=== PATIENT | female | born 1980 | race Two or more races ===

== ENCOUNTER 2019-07-24 04:13 | Inpatient (IN) | payer MEDICAID, OTHER ==
[2019-07-24] VITALS (15 sets, daily range): BP systolic 95–122; BP diastolic 37–91
[~2019-07-24] VITALS: Ht 152.4 cm; Wt 71.0 kg
[2019-07-24] MEDS ORDERED: IOHEXOL 350 MG/ML 100ML IJ ONE (04:30)
[2019-07-24 05:31] LABS: Basophils # (auto) 0.1 10 ^3/uL (0-0.2); Basophils % (auto) 1.1 % (0.0-2.0); Eosinophils # (auto) 0.1 10 ^3/uL (0-0.8); Eosinophils % (auto) 0.8 % (0.0-7.0); Hematocrit 12.4 % (36.0-46.0); Lymphocytes # (auto) 2.7 10 ^3/uL (0.4-5.4); Lymphocytes % (auto) 23.2 % (10.0-50.0); Mean Corpuscular Hemoglobin 17.8 pg (28.0-32.0); Mean Corpuscular Hgb Conc. 29.6 g/dL (32.0-36.0); Mean Corpuscular Volume 60.2 fL (80.0-100.0); Monocytes # (auto) 0.9 10 ^3/uL (0-1.3); Monocytes % (auto) 7.6 % (0.0-12.0); Neutrophils # (auto) 7.7 10 ^3/uL (1.6-8.6); Neutrophils % (auto) 67.3 % (37.0-80.0); Nucleated Red Blood Cells % 0.5 %; Platelet Count (auto) 274 10^3/uL (140-450); Red Blood Cells 2.07 10^6/uL (4.0-5.20); Red Cell Distribution Width 21.6 % (11.8-14.3); White Blood Cell 11.5 10^3/uL (4.4-10.8)
[2019-07-24 05:34] LABS: Hemoglobin 3.7 g/dL (12.2-16.2)
[2019-07-24 05:52] LABS: Urine Bacteria NONE SEEN /hpf (None Seen); Urine Blood 3+ /uL (Negative); Urine Specific Gravity 1.012 (1.001-1.035); Urine WBC 56 /hpf (0 - 5)
[2019-07-24 06:10] LABS: Chloride 109 mmol/L (98-107); Potassium 3.3 mmol/L (3.5-5.1); Sodium 140 mmol/L (136-145)
[2019-07-24 06:44] LABS: INR 1.23 (0.9-1.15); Partial Thromboplastin Time 28.6 sec (23.64-32.05)
[2019-07-24] MEDS ORDERED: cefTRIAXone 1GM/50ML D5W 50 ML IV ONE ×2 (07:00→14:30)
[2019-07-24 07:30] LABS: Alanine Aminotransferase 26 U/L (13-56); Anion Gap 11 (5-15); Aspartate Aminotransferase 19 U/L (15-37); BUN/Creatinine Ratio 10.8; Bilirubin, Total 0.3 mg/dL (0.2-1.0); Blood Urea Nitrogen 8 mg/dL (7-18); Carbon Dioxide 20 mmol/L (21-32); GFR African American 112 mL/min; GFR Non-African American 93 mL/min; Glucose 146 mg/dL (74-106); Total Protein 6.7 g/dL (6.4-8.2)
[2019-07-24 07:31] LABS: Alkaline Phosphatase 74 U/L (45-117); Calcium 7.7 mg/dL (8.5-10.1); Magnesium 2.3 mg/dL (1.6-2.6)
[2019-07-24] MEDS ORDERED: MORPHINE SULF INJ 2 MG/ML SYRINGE 1ML IV PRN ×2 (10:00)
[2019-07-24] MEDS ORDERED: HYDROcodone-ACET 5/325MG TAB PO PRN (10:00)
[2019-07-24] MEDS ORDERED: ONDANSETRON HCL 4 MG/2 ML VIAL IV PRN (10:00)
[2019-07-24] MEDS ORDERED: NITROGLYCERIN 0.4 MG SL TAB SL PRN (10:00)
[2019-07-24] MEDS ORDERED: ACETAMINOPHEN 500 MG TAB PO PRN (10:00)
[2019-07-24] MEDS ORDERED: IOHEXOL 300 MG/ML 100ML BOTTLE IJ ONE ×2 (10:03→13:54)
[2019-07-24] MEDS: levoFLOXacin 500 MG TAB PO SCH (10:53)
[2019-07-24] MEDS: PANTOPRAZOLE 40 MG TAB PO SCH (10:54)
[2019-07-24 13:33] LABS: Basophils # (auto) 0.1 10 ^3/uL (0-0.2); Monocytes # (auto) 0.8 10 ^3/uL (0-1.3); Neutrophils # (auto) 7.3 10 ^3/uL (1.6-8.6); Nucleated Red Blood Cells % 0.3 %
[2019-07-24 13:35] LABS: Basophils % (auto) 0.9 % (0.0-2.0); Eosinophils # (auto) 0.1 10 ^3/uL (0-0.8); Eosinophils % (auto) 0.5 % (0.0-7.0); Hematocrit 21.6 % (36.0-46.0); Lymphocytes % (auto) 19.4 % (10.0-50.0); Mean Corpuscular Hemoglobin 22.5 pg (28.0-32.0); Mean Corpuscular Hgb Conc. 32.2 g/dL (32.0-36.0); Mean Corpuscular Volume 69.7 fL (80.0-100.0); Monocytes % (auto) 7.8 % (0.0-12.0); Neutrophils % (auto) 71.4 % (37.0-80.0); Platelet Count (auto) 257 10^3/uL (140-450); White Blood Cell 10.2 10^3/uL (4.4-10.8)
[2019-07-24 13:37] LABS: Red Cell Distribution Width 29.7 % (11.8-14.3)
--- NOTE | 2019-07-24 16:15 | NUR ---
Telemetry admit from ER DARRIUS HUGOMELIA admitted to Telemetry unit after SBAR received. Patient oriented to Anne Espana, primary RN, unit, room, bed, and unit policies regarding patient care and current no visitation policy. Patient now on continuous telemetry monitoring, tele box # 61 and telemetry reading on arrival to unit is sinus rhythm in the 80's. Updated patient on POC and instructed to call for assistance as needed, patient verbalized understanding. Bed locked in lowest position, side rails up x2, call light within reach. Will continue to monitor q1hr and PRN.
[2019-07-24] MEDS ORDERED: RIVA10TA PO (17:51)
[2019-07-24] MEDS ORDERED: RIVA20TA PO (18:08)
--- NOTE | 2019-07-24 18:48 | NUR ---
PATIENT ROUNDS PATIENT SITTING UP IN BED EATING DINNER. NO S/S OF DISTRESS/SOB OR PAIN. CARE ENDORSED TO ORNAMENTAL IRONWORKER HELPER RN.
[2019-07-25 05:00] VITALS: BP 98/42
[2019-07-25 05:03] LABS: Basophils # (auto) 0.1 10 ^3/uL (0-0.2); Basophils % (auto) 1.1 % (0.0-2.0); Eosinophils # (auto) 0.1 10 ^3/uL (0-0.8); Monocytes # (auto) 0.7 10 ^3/uL (0-1.3); Neutrophils # (auto) 5.9 10 ^3/uL (1.6-8.6); White Blood Cell 9.1 10^3/uL (4.4-10.8)
[2019-07-25 05:04] LABS: Eosinophils % (auto) 1.6 % (0.0-7.0); Hematocrit 21.6 % (36.0-46.0); Lymphocytes # (auto) 2.2 10 ^3/uL (0.4-5.4); Lymphocytes % (auto) 24.6 % (10.0-50.0); Mean Corpuscular Hemoglobin 22.4 pg (28.0-32.0); Mean Corpuscular Hgb Conc. 32.5 g/dL (32.0-36.0); Mean Corpuscular Volume 68.9 fL (80.0-100.0); Neutrophils % (auto) 64.7 % (37.0-80.0); Nucleated Red Blood Cells % 0.3 %; Platelet Count (auto) 260 10^3/uL (140-450); Red Blood Cells 3.13 10^6/uL (4.0-5.20)
[2019-07-25 05:20] LABS: BUN/Creatinine Ratio 12.5; Calcium 8.2 mg/dL (8.5-10.1); Potassium 3.5 mmol/L (3.5-5.1)
--- NOTE | 2019-07-25 06:40 | NUR ---
Called hospitalist after receiving critical lab result of hemoglobin 7.0
--- NOTE | 2019-07-25 07:15 | NUR ---
Received and implemented orders from hospitalist.
--- NOTE | 2019-07-25 07:30 | NUR ---
Opening Shift Note Assumed care of patient, patient is laying in bed awake and alert. No S/S of distress or SOB, denies any pain at the moment. Instructed patient on POC and to call for assistance as needed, call light within reach. Safety measures in place, bed set to lowest locked position x 2 rails up. Will continue to monitor for changes Q1hr and PRN
[2019-07-25 09:00] VITALS: BP 105/65
[2019-07-25] MEDS: levoFLOXacin 500 MG TAB PO SCH (09:30)
[2019-07-25] MEDS: PANTOPRAZOLE 40 MG TAB PO SCH (09:30)
[2019-07-25 11:20] LABS: Hematocrit 22.5 % (36.0-46.0); Hemoglobin 7.1 g/dL (12.2-16.2)
--- NOTE | 2019-07-25 11:20 | NUR ---
Dr. Welsh at bedside for CURRICULUM MANAGER consult.
--- NOTE | 2019-07-25 12:00 | NUR ---
Dr. Sargent at Bedside.
[2019-07-25 13:00] VITALS: BP 110/57
[2019-07-25 16:54] VITALS: BP 113/76
--- NOTE | 2019-07-25 17:28 | NUR ---
NISH CHEN AT BEDSIDE DISCUSSED PLAN OF CARE, INFORMED CONSENT GIVEN IN PATIENTS PREFERRED LANGUAGE FOR PROCEDURE WITH DR HARMON TOMORROW. ALL QUESTIONS ANSWERED.
--- NOTE | 2019-07-25 19:00 | NUR ---
Opening Shift Note Assumed care of patient, awake and alert. No S/S of distress/SOB or pain. Patient is Upper Sorbian speaking. Instructed on POC and to call for assist PRN, will continue to monitor for changes Q1hr and PRN. Patient is in the lowest possible position with bed rails up x2 and call light within reach. Will continue to monitor patient. Patient to be NPO at midnight, patient is fully aware.
[2019-07-25 20:00] VITALS: BP 116/66
[2019-07-25 21:00] VITALS: BP 116/66
--- NOTE | 2019-07-26 | NUR ---
Patient is NPO and normal saline started at 70ml/hr.
[2019-07-26] MEDS ORDERED: SODIUM CHLORIDE 0.9% 1,000 ML IV SCH (00:01)
--- NOTE | 2019-07-26 03:30 | NUR ---
CHG bath given. Linens/gown changed and patient shaved groins.
[2019-07-26 05:00] VITALS: BP 106/72
[2019-07-26 05:06] LABS: Basophils # (auto) 0.1 10 ^3/uL (0-0.2); Eosinophils # (auto) 0.2 10 ^3/uL (0-0.8); Hemoglobin 7.1 g/dL (12.2-16.2); Lymphocytes # (auto) 2.5 10 ^3/uL (0.4-5.4); Mean Corpuscular Hemoglobin 22.1 pg (28.0-32.0); Neutrophils # (auto) 6.7 10 ^3/uL (1.6-8.6); White Blood Cell 10.3 10^3/uL (4.4-10.8)
[2019-07-26 05:07] LABS: Eosinophils % (auto) 1.8 % (0.0-7.0); Hematocrit 22.1 % (36.0-46.0); Lymphocytes % (auto) 23.8 % (10.0-50.0); Mean Corpuscular Volume 69.2 fL (80.0-100.0); Monocytes # (auto) 0.9 10 ^3/uL (0-1.3); Monocytes % (auto) 8.4 % (0.0-12.0); Nucleated Red Blood Cells % 0.3 %; Platelet Count (auto) 264 10^3/uL (140-450); Red Blood Cells 3.19 10^6/uL (4.0-5.20)
[2019-07-26 05:11] LABS: Red Cell Distribution Width 29.4 % (11.8-14.3)
[2019-07-26 05:21] LABS: INR 1.01 (0.9-1.15); Partial Thromboplastin Time 22.3 sec (23.64-32.05)
[2019-07-26 05:24] LABS: BUN/Creatinine Ratio 21.3; Calcium 8.2 mg/dL (8.5-10.1); Magnesium 2.4 mg/dL (1.6-2.6); Potassium 3.8 mmol/L (3.5-5.1)
--- NOTE | 2019-07-26 06:58 | NUR ---
Closing shift note Patient in the lowest possible position with bed rails up x2 and call light within reach. No complaints of pain or SOB. Will endorse to day shift.
--- NOTE | 2019-07-26 08:30 | NUR ---
Opening Shift Note Assumed care of patient, awake and alert. No S/S of distress/SOB or pain. Patient is Bengali speaking. Instructed on POC and to call for assist PRN, will continue to monitor for changes. Patient is in the lowest possible position with bed rails up x2 and call light within reach. Patient is NPO and fully aware of POC.
[2019-07-26 09:00] VITALS: BP 116/61
[2019-07-26] MEDS: levoFLOXacin 500 MG TAB PO SCH (09:49)
[2019-07-26] MEDS: PANTOPRAZOLE 40 MG TAB PO SCH (09:49)
--- NOTE | 2019-07-26 11:13 | NUR ---
Dr Bartlett at bedside Dr Bartlett spoke to patient about current Plan of care. Raisas LITTLE translated information. Patient verbalizes understanding the Plan of care. Patients has no questions at this time.
[2019-07-26] MEDS ORDERED: LEVO500T21 PO (12:38)
[2019-07-26 13:00] VITALS: BP 108/75
[2019-07-26] MEDS ORDERED: LEVO50TA7 PO (13:12)
[2019-07-26 15:43] VITALS: BP 108/75
[2019-07-26] MEDS ORDERED: FER325T PO (16:20)
[2019-07-26 17:00] VITALS: BP 110/63
--- NOTE | 2019-07-26 19:00 | NUR ---
Discharge instructions given as ordered. Encourage to follow up with PMD as instructed. All questions and concerns addressed. Patient verbalized understanding. Medication reconciliation form completed and copy given to patient. IV removed with catheter intact, pressure dressing applied. Telemetry unit returned to ICU. Patient ambulated to vehicle with all personal belongings, accompanied by staff. No distress noted at time of departure.
== END 2019-07-26 19:00 | disposition home or self-care (01) | DRG 532 ==
LOC: ER 04:13 → TELE 04:14 → TELE-WESTW 16:15
PROVIDERS: ADMIT Nurse Practitioner Acute Care; ATTEND Internal Medicine
PROC: 30233N1 Transfusion of Nonautologous Red Blood Cells into Peripheral Vein, Percutaneous Approach (ICD-10-PCS; principal; 2019-07-24)
DX: D25.9 Leiomyoma of uterus, unspecified (principal); D62 Acute posthemorrhagic anemia; I82.522 Chronic embolism and thrombosis of left iliac vein; I87.1 Compression of vein; N30.01 Acute cystitis with hematuria; N93.9 Abnormal uterine and vaginal bleeding, unspecified; N92.1 Excessive and frequent menstruation with irregular cycle; D50.9 Iron deficiency anemia, unspecified; E03.9 Hypothyroidism, unspecified; E66.9 Obesity, unspecified; Z79.899 Other long term (current) drug therapy
CPT/HCPCS: 36415; 36430; 71045; 71275; 74177; 76830; 76856; 80048; 80053; 81001; 81241; 83735; 83880; 84443; 84484; 85014; 85018; 85025; 85379; 85610; 85730; 86850; 86900; 86901; 86920; 87081; 87086; 93005; 93971; 96365; 96366; G0378; J0696

== ENCOUNTER 2019-08-01 12:25 | Inpatient (IN) | payer MEDICAID ==
[~2019-08-01] VITALS: Ht 152.4 cm; Wt 68.2 kg
[2019-08-01] VITALS (11 sets, daily range): BP systolic 108–122; BP diastolic 59–76
[~2019-08-01 12:25] MED LIST: FER325T PO; LEVO500T21 PO; LEVO50TA7 PO
[2019-08-01] MEDS ORDERED: ONDANSETRON HCL 4 MG/2 ML VIAL IV ONE (13:30)
[2019-08-01] MEDS ORDERED: MORPHINE SULFATE 4 MG/ML SYR/VIAL IV ONE (13:30)
[2019-08-01 14:03] LABS: Basophils # (auto) 0.1 10 ^3/uL (0-0.2); Basophils % (auto) 1.2 % (0.0-2.0); Eosinophils # (auto) 0.2 10 ^3/uL (0-0.8); Eosinophils % (auto) 2.1 % (0.0-7.0); Lymphocytes # (auto) 1.9 10 ^3/uL (0.4-5.4)
[2019-08-01 14:04] LABS: Hematocrit 21.6 % (36.0-46.0); Lymphocytes % (auto) 24.3 % (10.0-50.0); Mean Corpuscular Hemoglobin 21.5 pg (28.0-32.0); Mean Corpuscular Hgb Conc. 31.6 g/dL (32.0-36.0); Mean Corpuscular Volume 68.1 fL (80.0-100.0); Monocytes # (auto) 0.6 10 ^3/uL (0-1.3); Neutrophils # (auto) 5.2 10 ^3/uL (1.6-8.6); Neutrophils % (auto) 65.4 % (37.0-80.0); Nucleated Red Blood Cells % 0.1 %; Platelet Count (auto) 194 10^3/uL (140-450); Red Blood Cells 3.17 10^6/uL (4.0-5.20); White Blood Cell 7.9 10^3/uL (4.4-10.8)
[2019-08-01 14:12] LABS: Hemoglobin 6.8 g/dL (12.2-16.2); Red Cell Distribution Width 29.8 % (11.8-14.3)
[2019-08-01] MEDS ORDERED: MORPHINE SULF INJ 2 MG/ML SYRINGE 1ML IV PRN (14:15)
[2019-08-01] MEDS ORDERED: NITROGLYCERIN 0.4 MG SL TAB SL PRN (14:15)
[2019-08-01 14:30] LABS: Albumin 3.3 g/dL (3.4-5.0); Calcium 8.2 mg/dL (8.5-10.1); Potassium 3.9 mmol/L (3.5-5.1)
[2019-08-01 14:33] LABS: BUN/Creatinine Ratio 11.5; Bilirubin, Total 0.4 mg/dL (0.2-1.0); Total Protein 7.1 g/dL (6.4-8.2)
[2019-08-01] MEDS ORDERED: ACETAMINOPHEN 325 MG TAB PO PRN (15:15)
[2019-08-01] MEDS ORDERED: ALUM & MAG HYDROX-SIMETH LIQ(MAALOX) 30 ML PO ONE (15:15)
[2019-08-01] MEDS: SODIUM CHLORIDE 0.9% 1,000 ML IV SCH (16:02)
[2019-08-01] MEDS: HYDROcodone-ACET 5/325MG TAB PO PRN ×2 (16:03→23:40)
[2019-08-01] MEDS: FERROUS SULFATE 325 MG TAB PO SCH (22:31)
[2019-08-02] MEDS: SODIUM CHLORIDE 0.9% 1,000 ML IV SCH ×2 (04:25→17:24)
[2019-08-02 05:19] VITALS: BP 100/71
[2019-08-02 08:30] LABS: Hematocrit 26.1 % (36.0-46.0); Hemoglobin 8.3 g/dL (12.2-16.2)
[2019-08-02 09:00] VITALS: BP 101/73
[2019-08-02] MEDS: DOCUSATE SOD 100 MG CAP PO SCH (10:19)
[2019-08-02] MEDS: LEVOTHYROXINE SODIUM 50 MCG TAB PO SCH (10:19)
[2019-08-02] MEDS: FERROUS SULFATE 325 MG TAB PO SCH ×2 (10:19→22:08)
[2019-08-02] MEDS: HYDROcodone-ACET 5/325MG TAB PO PRN ×3 (10:24→22:08)
[2019-08-02 13:00] VITALS: BP 108/65
[2019-08-02] MEDS ORDERED: GADOTERIDOL 279.3mg/mL 20ml Vial IV ONE (13:12)
[2019-08-02] MEDS: ONDANSETRON HCL 4 MG/2 ML VIAL IV PRN (14:57)
[2019-08-02 17:00] VITALS: BP 111/69
[2019-08-02 20:00] VITALS: BP 105/61
[2019-08-02 22:00] VITALS: BP 105/61
[2019-08-03] MEDS: HYDROcodone-ACET 5/325MG TAB PO PRN ×4 (03:22→21:04)
[2019-08-03 05:00] VITALS: BP 113/67
[2019-08-03] MEDS: SODIUM CHLORIDE 0.9% 1,000 ML IV SCH ×2 (06:02→21:05)
[2019-08-03 09:11] VITALS: BP 99/53
[2019-08-03] MEDS: FERROUS SULFATE 325 MG TAB PO SCH ×2 (09:42→21:04)
[2019-08-03] MEDS: DOCUSATE SOD 100 MG CAP PO SCH (09:42)
[2019-08-03] MEDS: LEVOTHYROXINE SODIUM 50 MCG TAB PO SCH (09:42)
[2019-08-03] MEDS ORDERED: APIXABAN 5 MG TAB PO ONE (11:30)
[2019-08-03] MEDS ORDERED: cefTRIAXone 1GM/50ML D5W 50 ML IV ONE (11:30)
[2019-08-03 11:46] LABS: Basophils # (auto) 0.1 10 ^3/uL (0-0.2); Basophils % (auto) 0.9 % (0.0-2.0); Eosinophils # (auto) 0.3 10 ^3/uL (0-0.8); Hemoglobin 8.5 g/dL (12.2-16.2); Mean Corpuscular Hemoglobin 22.9 pg (28.0-32.0); Monocytes # (auto) 0.8 10 ^3/uL (0-1.3); Neutrophils # (auto) 5.7 10 ^3/uL (1.6-8.6); White Blood Cell 8.8 10^3/uL (4.4-10.8)
[2019-08-03 11:48] LABS: Eosinophils % (auto) 2.9 % (0.0-7.0); Hematocrit 26.3 % (36.0-46.0); Lymphocytes % (auto) 22.4 % (10.0-50.0); Mean Corpuscular Hgb Conc. 32.4 g/dL (32.0-36.0); Mean Corpuscular Volume 70.8 fL (80.0-100.0); Monocytes % (auto) 9.5 % (0.0-12.0); Neutrophils % (auto) 64.3 % (37.0-80.0); Nucleated Red Blood Cells % 0.1 %; Platelet Count (auto) 170 10^3/uL (140-450); Red Blood Cells 3.72 10^6/uL (4.0-5.20); Red Cell Distribution Width 31.6 % (11.8-14.3)
[2019-08-03 13:00] VITALS: BP 113/68
[2019-08-03 17:00] VITALS: BP 106/57
[2019-08-03] MEDS ORDERED: RIVAROXABAN 20 MG TAB PO SCH (18:00)
[2019-08-03] MEDS: ENOXAPARIN SOD 100 MG/1 ML SYRINGE SC SCH (21:05)
[2019-08-03 22:00] VITALS: BP 107/54
[2019-08-03] MEDS ORDERED: APIXABAN 5 MG TAB PO SCH (22:00)
[2019-08-04 05:50] VITALS: BP 101/53
[2019-08-04 06:20] LABS: Basophils # (auto) 0.1 10 ^3/uL (0-0.2); Basophils % (auto) 1.2 % (0.0-2.0); Eosinophils # (auto) 0.3 10 ^3/uL (0-0.8); Eosinophils % (auto) 4.3 % (0.0-7.0); Hematocrit 27.1 % (36.0-46.0); Hemoglobin 8.8 g/dL (12.2-16.2); Lymphocytes # (auto) 1.8 10 ^3/uL (0.4-5.4); Lymphocytes % (auto) 24.5 % (10.0-50.0); Mean Corpuscular Hemoglobin 23.3 pg (28.0-32.0); Mean Corpuscular Hgb Conc. 32.6 g/dL (32.0-36.0); Mean Corpuscular Volume 71.6 fL (80.0-100.0); Monocytes # (auto) 0.5 10 ^3/uL (0-1.3); Monocytes % (auto) 7.3 % (0.0-12.0); Neutrophils # (auto) 4.5 10 ^3/uL (1.6-8.6); Neutrophils % (auto) 62.7 % (37.0-80.0); Nucleated Red Blood Cells % 0.2 %; Platelet Count (auto) 164 10^3/uL (140-450); Red Blood Cells 3.79 10^6/uL (4.0-5.20); White Blood Cell 7.2 10^3/uL (4.4-10.8)
[2019-08-04 06:24] LABS: Red Cell Distribution Width 31.8 % (11.8-14.3)
[2019-08-04] MEDS: HYDROcodone-ACET 5/325MG TAB PO PRN ×3 (06:35→20:42)
[2019-08-04 06:38] LABS: Potassium 3.7 mmol/L (3.5-5.1)
[2019-08-04 06:49] LABS: BUN/Creatinine Ratio 11.8; Calcium 8.6 mg/dL (8.5-10.1)
[2019-08-04 09:00] VITALS: BP 113/62
[2019-08-04] MEDS ORDERED: PATIENTS OWN MEDICATION PO SCH (10:00)
[2019-08-04] MEDS: cefTRIAXone 1GM/50ML D5W 50 ML IV SCH (10:32)
[2019-08-04] MEDS: DOCUSATE SOD 100 MG CAP PO SCH (10:32)
[2019-08-04] MEDS: LEVOTHYROXINE SODIUM 50 MCG TAB PO SCH (10:32)
[2019-08-04] MEDS: FERROUS SULFATE 325 MG TAB PO SCH ×2 (10:32→20:41)
[2019-08-04] MEDS: ENOXAPARIN SOD 100 MG/1 ML SYRINGE SC SCH (10:32)
[2019-08-04 13:00] VITALS: BP 123/75
[2019-08-04] MEDS ORDERED: HEPARIN SODIUM (PORCINE) 5000 UNITS/ML 1ML VIAL IV ONE (14:00)
[2019-08-04 14:46] LABS: INR 1.07 (0.9-1.15); Partial Thromboplastin Time 30.7 sec (23.64-32.05)
[2019-08-04] MEDS: HEPARIN DRIP/D5W 100UNITS/ML 250 ML IV SCH (15:35)
[2019-08-04 17:12] VITALS: BP 98/54
[2019-08-04 22:00] VITALS: BP 111/72
[2019-08-04 22:47] LABS: INR 0.97 (0.9-1.15)
[2019-08-04 22:52] LABS: Partial Thromboplastin Time 85.1 sec (23.64-32.05)
[2019-08-05 05:49] VITALS: BP 101/64
[2019-08-05 07:44] LABS: Hematocrit 26.5 % (36.0-46.0)
[2019-08-05 07:46] LABS: Hemoglobin 8.5 g/dL (12.2-16.2)
[2019-08-05 07:50] LABS: INR 1.05 (0.9-1.15); Partial Thromboplastin Time 49.3 sec (23.64-32.05)
[2019-08-05] MEDS: HEPARIN DRIP/D5W 100UNITS/ML 250 ML IV SCH ×2 (09:05→09:11)
[2019-08-05 09:11] VITALS: BP 95/55
[2019-08-05] MEDS: DOCUSATE SOD 100 MG CAP PO SCH (10:26)
[2019-08-05] MEDS: FERROUS SULFATE 325 MG TAB PO SCH ×2 (10:26→22:12)
[2019-08-05] MEDS: cefTRIAXone 1GM/50ML D5W 50 ML IV SCH (10:26)
[2019-08-05] MEDS: LEVOTHYROXINE SODIUM 50 MCG TAB PO SCH (10:27)
[2019-08-05] MEDS: HYDROcodone-ACET 5/325MG TAB PO PRN ×2 (10:27→19:10)
[2019-08-05 13:00] VITALS: BP 100/67
[2019-08-05 17:10] VITALS: BP 97/51
[2019-08-05 22:00] VITALS: BP 110/64
[2019-08-06] MEDS: HYDROcodone-ACET 5/325MG TAB PO PRN ×3 (03:17→17:47)
[2019-08-06 03:33] LABS: Eosinophils # (auto) 0.5 10 ^3/uL (0-0.8); Hemoglobin 9.3 g/dL (12.2-16.2); Mean Corpuscular Hemoglobin 22.6 pg (28.0-32.0); Mean Corpuscular Hgb Conc. 31.3 g/dL (32.0-36.0); Monocytes # (auto) 0.7 10 ^3/uL (0-1.3); Nucleated Red Blood Cells % 0.1 %; Red Blood Cells 4.13 10^6/uL (4.0-5.20); White Blood Cell 9.9 10^3/uL (4.4-10.8)
[2019-08-06 03:35] LABS: Basophils # (auto) 0.4 10 ^3/uL (0-0.2); Basophils % (auto) 3.7 % (0.0-2.0); Eosinophils % (auto) 4.8 % (0.0-7.0); Hematocrit 29.9 % (36.0-46.0); Lymphocytes # (auto) 3.2 10 ^3/uL (0.4-5.4); Lymphocytes % (auto) 32.8 % (10.0-50.0); Mean Corpuscular Volume 72.3 fL (80.0-100.0); Monocytes % (auto) 6.7 % (0.0-12.0); Neutrophils # (auto) 5.1 10 ^3/uL (1.6-8.6); Platelet Count (auto) 246 10^3/uL (140-450)
[2019-08-06 03:39] LABS: Red Cell Distribution Width 32.6 % (11.8-14.3)
[2019-08-06 03:44] LABS: INR 1.01 (0.9-1.15); Partial Thromboplastin Time 49.5 sec (23.64-32.05)
[2019-08-06 05:00] VITALS: BP 98/63
[2019-08-06] MEDS: HEPARIN DRIP/D5W 100UNITS/ML 250 ML IV SCH (08:20)
[2019-08-06 09:00] VITALS: BP 90/58
[2019-08-06] MEDS: FERROUS SULFATE 325 MG TAB PO SCH ×2 (09:24→22:25)
[2019-08-06] MEDS: DOCUSATE SOD 100 MG CAP PO SCH (09:25)
[2019-08-06] MEDS: LEVOTHYROXINE SODIUM 50 MCG TAB PO SCH (09:25)
[2019-08-06] MEDS: cefTRIAXone 1GM/50ML D5W 50 ML IV SCH (09:27)
[2019-08-06 09:51] LABS: INR 1.04 (0.9-1.15)
[2019-08-06 10:07] LABS: Partial Thromboplastin Time 81.4 sec (23.64-32.05)
[2019-08-06] MEDS ORDERED: HEPARIN DRIP/D5W 100UNITS/ML 250 ML IV SCH ×2 (10:15→15:30)
[2019-08-06 13:00] VITALS: BP 100/66
[2019-08-06 15:11] LABS: INR 1.04 (0.9-1.15); Partial Thromboplastin Time 49.3 sec (23.64-32.05)
[2019-08-06 16:40] VITALS: BP 104/61
[2019-08-06 22:00] VITALS: BP 113/67
[2019-08-07] MEDS: HYDROcodone-ACET 5/325MG TAB PO PRN ×3 (01:56→21:30)
[2019-08-07 04:47] LABS: Lymphocytes # (auto) 2.6 10 ^3/uL (0.4-5.4); Mean Corpuscular Hemoglobin 23.5 pg (28.0-32.0); Neutrophils # (auto) 5.8 10 ^3/uL (1.6-8.6); Red Blood Cells 3.93 10^6/uL (4.0-5.20)
[2019-08-07 04:49] LABS: Basophils # (auto) 0.1 10 ^3/uL (0-0.2); Basophils % (auto) 1.3 % (0.0-2.0); Eosinophils # (auto) 0.4 10 ^3/uL (0-0.8); Eosinophils % (auto) 4.6 % (0.0-7.0); Hematocrit 28.1 % (36.0-46.0); Hemoglobin 9.2 g/dL (12.2-16.2); Lymphocytes % (auto) 26.3 % (10.0-50.0); Mean Corpuscular Hgb Conc. 32.9 g/dL (32.0-36.0); Mean Corpuscular Volume 71.4 fL (80.0-100.0); Monocytes # (auto) 0.8 10 ^3/uL (0-1.3); Monocytes % (auto) 7.8 % (0.0-12.0); Nucleated Red Blood Cells % 0.1 %; Platelet Count (auto) 256 10^3/uL (140-450); White Blood Cell 9.7 10^3/uL (4.4-10.8)
[2019-08-07 04:54] LABS: Red Cell Distribution Width 32.8 % (11.8-14.3)
[2019-08-07 05:07] LABS: INR 1.04 (0.9-1.15); Partial Thromboplastin Time 62.7 sec (23.64-32.05)
[2019-08-07 05:10] LABS: Albumin 3.5 g/dL (3.4-5.0); Calcium 8.8 mg/dL (8.5-10.1); Potassium 4.2 mmol/L (3.5-5.1)
[2019-08-07 05:14] LABS: BUN/Creatinine Ratio 19.7; Bilirubin, Total 0.3 mg/dL (0.2-1.0); Total Protein 7.8 g/dL (6.4-8.2)
[2019-08-07 05:22] VITALS: BP 87/51
[2019-08-07 09:00] VITALS: BP 94/53
[2019-08-07] MEDS: cefTRIAXone 1GM/50ML D5W 50 ML IV SCH (09:00)
[2019-08-07] MEDS ORDERED: IOHEXOL 350 MG/ML 100ML IJ ONE (09:29)
[2019-08-07] MEDS ORDERED: LIDOCAINE 2%HCL (LOCAL ANESTH.) INJ 20ML MDV ONE (09:29)
[2019-08-07] MEDS: FERROUS SULFATE 325 MG TAB PO SCH ×2 (10:00→19:11)
[2019-08-07] MEDS: DOCUSATE SOD 100 MG CAP PO SCH (10:00)
[2019-08-07] MEDS: LEVOTHYROXINE SODIUM 50 MCG TAB PO SCH (10:00)
[2019-08-07] MEDS ORDERED: MIDAZOLAM HCL 1MG/1ML-2 ML VIAL ONE ×3 (10:06→13:01)
[2019-08-07] MEDS ORDERED: fentaNYL CITRATE 100 MCG/2 ML VL ONE ×2 (10:06→11:54)
[2019-08-07] MEDS ORDERED: HEPARIN SODIUM (PORCINE) 5000 UNITS/ML 1ML VIAL ONE ×3 (11:38→12:43)
[2019-08-07] MEDS ORDERED: diphenhdrAMINE HCL 50 MG/1 ML VL ONE (11:38)
[2019-08-07] MEDS ORDERED: HYDROmorphone HCL 2 MG/ML VL ONE (12:17)
[2019-08-07] MEDS ORDERED: KETOROLAC TROMETH 15 mg/ml 1ML VL IV PRN (14:30)
[2019-08-07 17:00] VITALS: BP 113/67
[2019-08-07] MEDS: KETOROLAC TROMETH 30 MG/ML 1ML VIAL IV PRN (19:12)
[2019-08-07] MEDS: APIXABAN 5 MG TAB PO SCH (21:29)
[2019-08-07 22:00] VITALS: BP 107/57
[2019-08-07] MEDS ORDERED: PATIENTS OWN MEDICATION (ELIQUIS 5 MG) PO SCH (22:00)
[2019-08-07] MEDS ORDERED: PATIENTS OWN MEDICATION (Eliquis 5 MG) PO SCH (22:00)
[2019-08-07] MEDS ORDERED: APIXABAN 5 MG TAB PO SCH (22:00)
[2019-08-08] MEDS: LORazepam 0.5 MG TAB PO PRN ×2 (00:16→14:50)
[2019-08-08] MEDS: KETOROLAC TROMETH 30 MG/ML 1ML VIAL IV PRN ×2 (01:19→08:46)
[2019-08-08] MEDS: HYDROcodone-ACET 5/325MG TAB PO PRN ×4 (04:43→20:53)
[2019-08-08 05:00] VITALS: BP 113/54
[2019-08-08] MEDS: LEVOTHYROXINE SODIUM 50 MCG TAB PO SCH (06:38)
[2019-08-08 09:00] VITALS: BP 106/61
[2019-08-08] MEDS: FERROUS SULFATE 325 MG TAB PO SCH ×2 (10:15→18:08)
[2019-08-08] MEDS: DOCUSATE SOD 100 MG CAP PO SCH (10:15)
[2019-08-08] MEDS: APIXABAN 5 MG TAB PO SCH ×2 (10:16→21:08)
[2019-08-08] MEDS: cefTRIAXone 1GM/50ML D5W 50 ML IV SCH (10:41)
[2019-08-08 13:00] VITALS: BP 99/55
[2019-08-08 17:00] VITALS: BP 94/52
[2019-08-08 21:34] VITALS: BP 107/49
[2019-08-09] MEDS ORDERED: HYDROcodone-ACET 5/325MG TAB PO ONE (00:45)
[2019-08-09 05:00] VITALS: BP 92/64
[2019-08-09] MEDS: LEVOTHYROXINE SODIUM 50 MCG TAB PO SCH (06:13)
[2019-08-09] MEDS: HYDROcodone-ACET 5/325MG TAB PO PRN ×4 (06:13→23:50)
[2019-08-09] MEDS: FERROUS SULFATE 325 MG TAB PO SCH ×2 (07:50→17:43)
[2019-08-09] MEDS: cefTRIAXone 1GM/50ML D5W 50 ML IV SCH (08:45)
[2019-08-09 09:00] VITALS: BP 102/65
[2019-08-09] MEDS: ONDANSETRON HCL 4 MG/2 ML VIAL IV PRN (09:13)
[2019-08-09] MEDS: APIXABAN 5 MG TAB PO SCH ×2 (10:25→22:06)
[2019-08-09] MEDS: DOCUSATE SOD 100 MG CAP PO SCH (10:25)
[2019-08-09 11:27] LABS: Basophils # (auto) 0.1 10 ^3/uL (0-0.2); Hematocrit 28.5 % (36.0-46.0); Lymphocytes # (auto) 1.3 10 ^3/uL (0.4-5.4); Monocytes # (auto) 0.7 10 ^3/uL (0-1.3); White Blood Cell 8.4 10^3/uL (4.4-10.8)
[2019-08-09 11:29] LABS: Eosinophils # (auto) 0.4 10 ^3/uL (0-0.8); Eosinophils % (auto) 4.4 % (0.0-7.0); Lymphocytes % (auto) 15.1 % (10.0-50.0); Mean Corpuscular Hemoglobin 22.9 pg (28.0-32.0); Mean Corpuscular Hgb Conc. 31.6 g/dL (32.0-36.0); Mean Corpuscular Volume 72.4 fL (80.0-100.0); Monocytes % (auto) 7.9 % (0.0-12.0); Neutrophils % (auto) 71.6 % (37.0-80.0); Nucleated Red Blood Cells % 0.1 %; Platelet Count (auto) 224 10^3/uL (140-450); Red Blood Cells 3.93 10^6/uL (4.0-5.20)
[2019-08-09 11:47] LABS: BUN/Creatinine Ratio 13.5; Calcium 8.6 mg/dL (8.5-10.1); Potassium 4.1 mmol/L (3.5-5.1)
[2019-08-09 13:00] VITALS: BP 101/54
[2019-08-09 17:00] VITALS: BP 103/67
[2019-08-09 21:45] VITALS: BP 98/51
[2019-08-10 05:00] VITALS: BP 109/66
[2019-08-10] MEDS: LEVOTHYROXINE SODIUM 50 MCG TAB PO SCH (06:09)
[2019-08-10] MEDS: HYDROcodone-ACET 5/325MG TAB PO PRN ×2 (06:23→10:52)
[2019-08-10 08:00] VITALS: BP 99/56
[2019-08-10] MEDS: cefTRIAXone 1GM/50ML D5W 50 ML IV SCH (08:37)
[2019-08-10] MEDS: FERROUS SULFATE 325 MG TAB PO SCH (08:37)
[2019-08-10 08:38] VITALS: BP 99/56
[2019-08-10] MEDS: APIXABAN 5 MG TAB PO SCH (09:56)
[2019-08-10] MEDS: DOCUSATE SOD 100 MG CAP PO SCH (09:56)
[2019-08-10 13:00] VITALS: BP 100/50
[2019-08-10] MEDS ORDERED: HYDROcodone-ACET 5/325MG TAB PO SCH (14:00)
[2019-08-14] MEDS ORDERED: APIXABAN 5 MG TAB PO SCH (22:00)
== END 2019-08-10 17:25 | disposition home or self-care (01) | DRG 182 ==
LOC: ER 12:25 → TELE 12:26 → TELE-WESTW 15:20
PROVIDERS: ADMIT Hospitalist; ATTEND Internal Medicine Nephrology
PROC: 30233N1 Transfusion of Nonautologous Red Blood Cells into Peripheral Vein, Percutaneous Approach (ICD-10-PCS; principal; 2019-08-01)
PROC: 067D3DZ Dilation of Left Common Iliac Vein with Intraluminal Device, Percutaneous Approach (ICD-10-PCS; 2019-08-07)
PROC: 067G3DZ Dilation of Left External Iliac Vein with Intraluminal Device, Percutaneous Approach (ICD-10-PCS; 2019-08-07)
PROC: B54CZZ3 Ultrasonography of Left Lower Extremity Veins, Intravascular (ICD-10-PCS; 2019-08-07)
PROC: B54CZZ3 Ultrasonography of Left Lower Extremity Veins, Intravascular (ICD-10-PCS; 2019-08-07)
PROC: 067N3DZ Dilation of Left Femoral Vein with Intraluminal Device, Percutaneous Approach (ICD-10-PCS; 2019-08-07)
PROC: B5191ZZ Fluoroscopy of Inferior Vena Cava using Low Osmolar Contrast (ICD-10-PCS; 2019-08-07)
PROC: B51G1ZZ Fluoroscopy of Left Pelvic (Iliac) Veins using Low Osmolar Contrast (ICD-10-PCS; 2019-08-07)
PROC: B54CZZ3 Ultrasonography of Left Lower Extremity Veins, Intravascular (ICD-10-PCS; 2019-08-07)
DX: I87.1 Compression of vein (principal); I82.432 Acute embolism and thrombosis of left popliteal vein; D69.6 Thrombocytopenia, unspecified; D50.0 Iron deficiency anemia secondary to blood loss (chronic); E66.9 Obesity, unspecified; D25.9 Leiomyoma of uterus, unspecified; E03.9 Hypothyroidism, unspecified; Z79.01 Long term (current) use of anticoagulants; Z68.29 Body mass index [BMI] 29.0-29.9, adult; I82.522 Chronic embolism and thrombosis of left iliac vein
CPT/HCPCS: 36415; 37221; 37224; 37252; 73723; 75710; 75716; 75825; 76937; 80048; 80053; 82565; 84443; 84702; 85014; 85018; 85025; 85610; 85730; 86850; 86900; 86901; 86920; 87081; 93971; 96374; 96375; 99152; 99153; G0378; J0696; J1885; J2250; J2405

== ENCOUNTER 2019-08-19 12:38 | Emergency (ER) | payer MEDICAID ==
[~2019-08-19] VITALS: Ht 152.4 cm; Wt 63.5 kg
[~2019-08-19 12:38] MED LIST changes: -LEVO500T21 PO
[2019-08-19 12:59] VITALS: BP 118/53
== END 2019-08-19 14:01 | disposition home or self-care (01) ==
LOC: ER 12:38
DX: L02.416 Cutaneous abscess of left lower limb (principal); Z90.49 Acquired absence of other specified parts of digestive tract; Z79.899 Other long term (current) drug therapy

== ENCOUNTER 2020-02-03 21:34 | Emergency (ER) | payer MEDICAID ==
[~2020-02-03] VITALS: Ht 152.4 cm; Wt 72.6 kg
[2020-02-03 23:14] LABS: Basophils # (auto) 0.1 10 ^3/uL (0-0.2); Basophils % (auto) 0.8 % (0.0-2.0); Eosinophils # (auto) 0.2 10 ^3/uL (0-0.8); Eosinophils % (auto) 1.7 % (0.0-7.0); Hematocrit 32.1 % (36.0-46.0); Hemoglobin 10.2 g/dL (12.2-16.2); Lymphocytes # (auto) 2.2 10 ^3/uL (0.4-5.4); Lymphocytes % (auto) 21.2 % (10.0-50.0); Mean Corpuscular Hemoglobin 22.9 pg (28.0-32.0); Mean Corpuscular Hgb Conc. 31.8 g/dL (32.0-36.0); Mean Corpuscular Volume 71.9 fL (80.0-100.0); Monocytes # (auto) 0.8 10 ^3/uL (0-1.3); Monocytes % (auto) 7.7 % (0.0-12.0); Neutrophils # (auto) 7.1 10 ^3/uL (1.6-8.6); Neutrophils % (auto) 68.6 % (37.0-80.0); Platelet Count (auto) 296 10^3/uL (140-450); Red Blood Cells 4.46 10^6/uL (4.0-5.20); Red Cell Distribution Width 18.8 % (11.8-14.3); White Blood Cell 10.3 10^3/uL (4.4-10.8)
[2020-02-03 23:43] LABS: Albumin 3.4 g/dL (3.4-5.0); Calcium 9.2 mg/dL (8.5-10.1); Potassium 3.5 mmol/L (3.5-5.1)
[2020-02-03 23:46] LABS: Bilirubin, Total 0.2 mg/dL (0.2-1.0); Total Protein 7.6 g/dL (6.4-8.2)
[2020-02-04] MEDS ORDERED: SODIUM CHLORIDE 0.9% 1,000 ML IV ONE (02:15)
[2020-02-04] MEDS ORDERED: MORPHINE SULFATE 4 MG/ML SYR/VIAL IV ONE (02:15)
[2020-02-04] MEDS ORDERED: ONDANSETRON HCL 4 MG/2 ML VIAL IV ONE ×2 (02:15→03:30)
[2020-02-04 02:29] LABS: Urine Bacteria FEW /hpf (None Seen); Urine Blood 3+ /uL (Negative); Urine Mucus FEW (None Seen); Urine Specific Gravity 1.026 (1.001-1.035); Urine WBC 11 /hpf (0 - 5)
[2020-02-04] MEDS ORDERED: cefTRIAXone 1GM/50ML D5W 50 ML IV ONE (02:45)
[2020-02-04 03:25] VITALS: BP 138/73
[2020-02-04] MEDS ORDERED: HYDROmorphone HCL 2 MG/ML VL IV ONE (03:30)
[2020-02-04 03:43] LABS: Alcohol, Urine < 3.0 mg/dL (0-10); Amphetamine Screen, Urine NEGATIVE (NEGATIVE); Barbiturate Scree,Urine NEGATIVE (NEGATIVE); Benzodiazephine Screen, Urine NEGATIVE (NEGATIVE); Cannabinoid Screen, Urine NEGATIVE (NEGATIVE); Cocaine Screen, Urine NEGATIVE (NEGATIVE); Opiate Scree,Urine NEGATIVE (NEGATIVE); Phencyclidine Screen, Urine NEGATIVE (NEGATIVE)
== END 2020-02-04 04:30 | disposition home or self-care (01) ==
LOC: ER 21:36
DX: N39.0 Urinary tract infection, site not specified (principal); N93.9 Abnormal uterine and vaginal bleeding, unspecified; D64.9 Anemia, unspecified; R93.89 Abnormal findings on diagnostic imaging of other specified body structures; Z79.899 Other long term (current) drug therapy
CPT/HCPCS: 36415; 76830; 76856; 80053; 80307; 81001; 84702; 85025; 96365; 96375; 96376; 99284; J0696; J1170; J2270; J2405

== ENCOUNTER 2020-06-26 04:03 | Emergency (ER) | payer MEDICAID ==
[~2020-06-26] VITALS: Ht 152.4 cm; Wt 61.2 kg
[2020-06-26] MEDS ORDERED: ONDANSETRON HCL 4 MG/2 ML VIAL IV ONE (05:00)
[2020-06-26] MEDS ORDERED: FAMOTIDINE (10MG/ML) 2ML VL IV ONE (05:00)
[2020-06-26] MEDS ORDERED: SUCRALFATE 1 GM/10 ML ORAL SUSP PO ONE (05:00)
[2020-06-26 05:12] LABS: Basophils # (auto) 0.1 10 ^3/uL (0-0.2); Eosinophils # (auto) 0.3 10 ^3/uL (0-0.8); Hematocrit 38.6 % (36.0-46.0); Monocytes # (auto) 0.8 10 ^3/uL (0-1.3); White Blood Cell 10.2 10^3/uL (4.4-10.8)
[2020-06-26 05:14] LABS: Basophils % (auto) 0.5 % (0.0-2.0); Eosinophils % (auto) 3.2 % (0.0-7.0); Hemoglobin 12.1 g/dL (12.2-16.2); Lymphocytes # (auto) 2.9 10 ^3/uL (0.4-5.4); Lymphocytes % (auto) 28.1 % (10.0-50.0); Mean Corpuscular Hemoglobin 22.3 pg (28.0-32.0); Mean Corpuscular Hgb Conc. 31.3 g/dL (32.0-36.0); Mean Corpuscular Volume 71.2 fL (80.0-100.0); Neutrophils # (auto) 6.2 10 ^3/uL (1.6-8.6); Neutrophils % (auto) 60.2 % (37.0-80.0); Nucleated Red Blood Cells % 0.2 %; Platelet Count (auto) 270 10^3/uL (140-450); Red Blood Cells 5.42 10^6/uL (4.0-5.20)
[2020-06-26 05:15] LABS: Urine Bacteria FEW /hpf (None Seen); Urine Blood 1+ /uL (Negative); Urine Mucus FEW (None Seen); Urine Specific Gravity 1.016 (1.001-1.035); Urine WBC <1 /hpf (0 - 5)
[2020-06-26 05:26] LABS: Red Cell Distribution Width 21.2 % (11.8-14.3)
[2020-06-26 05:31] LABS: Albumin 3.4 g/dL (3.4-5.0); Calcium 8.8 mg/dL (8.5-10.1); Potassium 3.7 mmol/L (3.5-5.1)
[2020-06-26 05:34] LABS: BUN/Creatinine Ratio 18.2; Bilirubin, Total 0.3 mg/dL (0.2-1.0)
[2020-06-26 06:38] VITALS: BP 113/59
== END 2020-06-26 06:38 | disposition home or self-care (01) ==
LOC: ER 04:07
DX: R10.12 Left upper quadrant pain (principal)
CPT/HCPCS: 36415; 80053; 81001; 83605; 83690; 85025; 96374; 96375; 99284; J2405; J3490

== ENCOUNTER 2024-10-14 14:10 | Emergency (ER) | payer MEDICAID ==
[~2024-10-14] VITALS: Ht 152.4 cm; Wt 75.1 kg
--- NOTE | 2024-10-14 14:42 | ED.PDOC ---
History of Present Illness HPI Comments 44-year-old female presents with a chief complaint of earache x 2 days. Patient states that her pain is localized to her bilateral ears. Patient has been attempting to relieve the pain with Tylenol, but has had no success. Patient denies any nausea, vomiting, or diarrhea. Chief Complaint: Earache Time Seen by MD: 14:25 Primary Care Provider: OUT OF TOWN Reviewed Notes: Medications, Allergies Allergies: Coded Allergies: NO KNOWN ALLERGIES (Unverified , 07/24/19) Home Meds Active Scripts Ferrous Sulfate (FERROUS SULFATE) 325 Mg Tb, 1 TAB PO BID, #60 TAB Prov:BANDAR MONGE MD 07/26/19 Levothyroxine Sodium (Levothyroxine Sodium) 50 Mcg Tab, 50 MCG PO DAILY, #30 TAB Prov:BANDAR MONGE MD 07/26/19 Information Source: Patient Mode of Arrival: Ambulatory Severity: Moderate Timing: Days Duration: Since onset Prehospital treatment: None Past Medical History PAST MEDICAL HISTORY: GERD, Thyroid Surgical History: Appendectomy, , Hernia Repair ENTRY PROCESSOR History: No Pertinent ENTRY PROCESSOR History Family History Family History: Reviewed,noncontributory to illness Social History Smoker: Non-Smoker Alcohol: Denies ETOH Use Drugs: Denies Drug Use Lives In: Home Constitutional: denies: chills, diaphoresis, fatigue, fever, malaise, sweats, weakness, others EENTM: reports: ear pain; denies: blurred vision, double vision, ear bleeding, ear discharge, ear drainage, ear ringing, eye pain, eye redness, hearing loss, mouth pain, mouth swelling, nasal discharge, nose bleeding, nose congestion, nose pain, photophobia, tearing, throat pain, throat swelling, voice changes, others Respiratory: denies: cough, hemoptysis, orthopnea, SOB at rest, shortness of breath, SOB with excertion, stridor, wheezing, others Cardiovascular: denies: chest pain, dizzy spells, diaphoresis, Dyspnea on exertion, edema, irregular heart beat, left arm pain, lightheadedness, palpitations, PND, syncope, others Gastrointestinal: denies: abdomen distended, abdominal pain, blood streaked bowels, constipated, diarrhea, dysphagia, difficulty swallowing, hematemesis, melena, nausea, poor appetite, poor fluid intake, rectal bleeding, rectal pain, vomiting, others Genitourinary: denies: abnormal vagina bleeding, burning, dyspareunia, dysuria, flank pain, frequency, hematuria, incontinence, pain, , vagina discharge, urgency, others Neurological: denies: dizziness, fainting, headache, left sided numbness, left sided weakness, numbness, paresthesia, pre-existing deficit, right sided numbness, right sided weakness, seizure, speech problems, tingling, tremors, weakness, others Musculoskeletal: denies: back pain, gout, joint pain, joint swelling, muscle pain, muscle stiffness, neck pain, others Integumetry: denies: bruises, change in color, change in hair/nails, dryness, laceration, lesions, lumps, rash, wounds, others Allergic/Immunocompromised: denies: Difficulty Healing, Frequent Infections, Hives, Itching, others Hematologic/Lymphatic: denies: anemia, blood clots, easy bleeding, easy bruising, swollen glands, others Endocrine: denies: excessive hunger, excessive sweating, excessive thirst, excessive urination, flushing, intolerance to cold, intolerance to heat, unexplained weight gain, unexplained weight loss, others Psychiatric: denies: anxiety, bipolar disorder, depression, hopeless, panic disorder, schizophrenia, sleepless, suicidal, others All Other Systems: Reviewed and Negative Physical Exam General Appearance: Moderate Distress, Normal HEENT: Normal ENT Inspection, Pharynx Normal, TM Abnormal (L), TM Abnormal (R) Neck: Full Range of Motion, Non-Tender, Normal, Normal Inspection Respiratory: Chest Non-Tender, Lungs Clear, No Accessory Muscle Use, No Respiratory Distress, Normal Breath Sounds Cardiovascular: No Edema, No JVD, No Murmur, No Gallop, Normal Peripheral Pulses, Regular Rate/Rhythm Breast Exam: Deferred Gastrointestinal: No Organomegaly, Non Tender, No Pulsatile Mass, Normal Bowel Sounds, Soft Genitalia: Deferred Pelvic: Deferred Rectal: Deferred Extremities: No calf tenderness, Normal capillary refill, Normal inspection, Normal range of motion, Non-tender, No pedal edema Musculoskeletal : Apperance: Normal Neurologic: Alert, database management specialist II-XII nml as Tested, No Motor Deficits, Normal Affect, Normal Mood, No Sensory Deficits Cerebellar Function: Normal Reflexes: Normal Skin: Dry, Normal Color, Warm Peripheral Pulses: 3+ Radial (R), 3+ Radial (L) Lymphatic: No Adenopathy Was a procedure done? Was a procedure done?: No Differential Dx Considerations may include: Otitis media X-Ray, Labs, Meds, VS Vital Signs Date Time Temp Pulse Resp B/P (MAP) Pulse Ox O2 Delivery O2 Flow Rate FiO2 10/14/24 14:20 99.1 77 16 107/66 (80) 95 99.1 Patient alert. Complaining of ear pain. On examination congestion along with mild redness pain Vitals stable. Early otitis media. Possible autonomic disorder. Was given prescription of amoxicillin antibiotic. Explained to the patient. Was told to follow up with her primary care physician. Was told to come back if there is any problem. Time of 1ST Reevaluation: 14:55 Reevaluation 1ST: Unchanged Patient Education/Counseling: Diagnosis, Treatment, Need For Follow Up Family Education/Counseling: No Family Present SEPSIS Sepsis Screen Vital Signs Date Time Temp Pulse Resp B/P (MAP) Pulse Ox O2 Delivery O2 Flow Rate FiO2 10/14/24 14:20 99.1 77 16 107/66 (80) 95 99.1 Departure 1 Departure Time of Disposition: 14:51 Impression: Primary Impression: Autonomic disorder Additional Impression: Otitis media Qualified Codes: H66.90 - Otitis media, unspecified, unspecified ear Disposition: 01 HOME / SELF CARE / HOMELESS Condition: Good e-Prescriptions Amoxicillin Trihydrate (Amoxicillin) 500 Mg Tab 1 TAB PO TID for 7 Days, #21 TAB Prov: FANNY MAXWELL MD 10/14/24 Discharged With: Self Critical Care Note Critical Care Time?: No Stability Stability form required: No Heart Score Heart Score: Heart Score Response (Comments) Value History N/A 0 EKG N/A 0 Age N/A 0 Risk Factors N/A 0 Troponin N/A 0 Total 0 I personally scribed for FANNY MAXWELL MD ([email or web address]) on 10/14/24 at 14:42. Electronically submitted by Sonido Robin ([email or web address]). FANNY MAXWELL MD Oct 14, 2024 14:42
[2024-10-14] MEDS ORDERED: AMOX500T3 PO (14:52)
[2024-10-14 16:07] VITALS: BP 120/71; TEMP 97.6
[2024-10-14 16:09] VITALS: PULSE 91; RESP 16; O2SAT 96
== END 2024-10-14 16:10 | disposition home or self-care (01) ==
LOC: ER 14:10
DX: H66.93 Otitis media, unspecified, bilateral (principal); G90.9 Disorder of the autonomic nervous system, unspecified; Z98.890 Other specified postprocedural states; Z90.49 Acquired absence of other specified parts of digestive tract